=== PATIENT | male | born 1990 | race Caucasian/White ===

== ENCOUNTER 2022-04-18 20:56 | Emergency (ER) | payer OTHER ==
[~2022-04-18 20:56] MED LIST: ASPIRIN CHEWABL81 MG PO; COZAAR50 MG PO; HYDROXYZINE HCL25 MG PO; IBUPROFEN600 MG PO; NORFLEX 100 MG100 MG PO; PENVEE K 500 M500 MG PO; ZOLOFT100 MG PO
[2022-04-18 21:47] LABS: HEMOGLOBIN 17.6 gm/dl (14.0-17.5); RED BLOOD COUNT 5.31 M/UL (4.20-5.50); WHITE BLOOD COUNT 6.6 K/UL (4.5-11.0)
[2022-04-18 22:18] LABS: BUN/CREATININE RATIO 17 (0-10)
[2022-04-19] MEDS ORDERED: COLACE100 MG PO (02:06)
[2022-04-19] MEDS ORDERED: CARAFATE1 GM PO (02:06)
[2022-04-19] MEDS ORDERED: PROCTOSOL-HC28.35 GM PR (02:07)
[2022-04-19] MEDS ORDERED: ZOFRAN ODT 4 MG4 MG SL (02:20)
== END 2022-04-19 02:16 | disposition home or self-care (01) ==
LOC: ER1 20:56
PROVIDERS: Physician Assistant
DX: K92.0 Hematemesis (principal); K21.9 Gastro-esophageal reflux disease without esophagitis; I10 Essential (primary) hypertension; Z20.822 Contact with and (suspected) exposure to COVID-19
CPT/HCPCS: 0240U; 71045; 80053; 81001; 83690; 83735; 85025; 99284; Q9967